=== PATIENT | male | born 1955 | race African-American/Black ===

== ENCOUNTER 2019-03-22 11:03 | Emergency (ER) | payer OTHER, SELFPAY ==
--- NOTE | 2019-03-22 11:10 | PC.NURSE ---
PT DECIDED NOT TO BE SEEN PRIOR TO TRIAGE.
== END 2019-03-22 11:10 | disposition left against medical advice (07) ==
LOC: ANHED 11:11
PROVIDERS: PCP Internal Medicine
DX: Z53.21 Procedure and treatment not carried out due to patient leaving prior to being seen by health care provider (principal)
CPT/HCPCS: 99199

== ENCOUNTER 2019-04-23 10:35 | Emergency (ER) | payer OTHER, SELFPAY ==
[2019-04-23 11:22] VITALS: BP 126/77; PULSE 73; RESP 20; TEMP 37; O2SAT 100
--- NOTE | 2019-04-23 11:46 | ED.GENADULT ---
HPI - General Adult General Chief complaint: Eye Problems Stated complaint: FO in eye Time Seen by Provider: 04/23/19 11:46 Source: patient and RN notes reviewed Mode of arrival: ambulatory Limitations: no limitations History of Present Illness HPI narrative: 63-year-old -Guyanese male presents with complaints of foreign body sensation in LT eye, swelling, and redness for 1 day. No treatment. Demar says he believes that dust might have flown into his eye last night between 22:00/23:00 while checking on construction work done at his home. LT eye pain clear drainage. Denies injury or trauma to eye. No exacerbating factors. No relieving factors. Denies blurred vision, double vision, or pain of eye with movement. Denies fever or chills. Denies URI symptoms. Remains active. Some parts of this dictation were generated by voice recognition software and may contain typographical and/or grammatical inaccuracies. Related Data Home Medications Medication Instructions Recorded Confirmed amlodipine 10 mg PO DAILY 03/07/19 04/23/19 aspirin [Aspirin Low Dose] 81 mg PO DAILY 03/07/19 04/23/19 flecainide 100 mg PO DAILY 03/07/19 04/23/19 olmesartan-hydrochlorothiazide 1.5 tablet PO DAILY 03/07/19 04/23/19 [Benicar HCT] Allergies Allergy/AdvReac Type Severity Reaction Status Date / Time No Known Allergies Allergy Verified 04/23/19 11:24 Review of Systems Constitutional: Comments: CONSTITUTIONAL: Denies fever, chills, sweats. EYES: Denies visual changes. Complains of foreign body sensation in LT eye, swelling, and redness. ENT: Denies rhinorrhea, congestion, sore throat, otalgia. CARDIOVASCULAR: Denies chest pain, palpitations, edema. RESPIRATORY: Denies dyspnea, wheezing, cough. GASTROINTESTINAL: Denies abdominal pain, nausea, vomiting, diarrhea. GENITOURINARY: Denies dysuria, hematuria, abnormal discharge. SKIN: Denies rash or itching. MUSCULOSKELETAL: Denies acute back pain, joint pain, or myalgia. NEUROLOGIC: Denies numbness or focal weakness. PSYCHIATRIC: Denies anxiety or depression. All systems reviewed & are unremarkable except as noted in HPI and below. [facility] Past Medical History Medical History (Updated 04/28/19 @ 01:15 by SHEILA Laughlin) Atrial fibrillation History of cardioversion Hypertension Surgical History Surgical History (Updated 04/28/19 @ 01:15 by SHEILA Laughlin) No significant past surgical history Family History Family History (Updated 04/28/19 @ 01:15 by SHEILA Laughlin) Other No significant family history Social History Social History (Updated 04/28/19 @ 01:16 by SHEILA Laughlin) Smoking status: Never smoker Second hand tobacco smoke exposure: No Alcohol intake: never Substance use: never Living arrangements: with family Occupation/Education: occupation Gender identity (if verbalized by the patient): Male Comments At time of signature, I have reviewed and agree with nursing past medical, surgical, social, and family history. Please see nursing chart for further information. There is no relevant family history pertinent to the presenting complaint. Exam Narrative: Exam Narrative: GENERAL: This is a well-nourished, well-developed patient, in no apparent distress. HEAD: normocephalic, atraumatic. EYES: PERRL. Sclera clear/white to RT eye only. LT eye sclera duane, clear, with a small between 7&8 Subconjunctival Hemorrhage with clear watery drainage. No visible or palpable Hordeolum present, no drainable abscess. No foreign body or lesions were noted on eversion of upper eyelid. No tenderness on palpation or erythema. Mild upper eyelid swelling consistent with mild Patricia-orbital cellulitis. No concern for orbital cellulitis. No tenderness on palpation. Vision is grossly intact. EARS: External ears normal, auditory canals clear and without drainage, TMs normal without perforation. Hearing grossly intact. NOSE: External nose nor
== END 2019-04-23 12:16 | disposition home or self-care (01) ==
PROVIDERS: Emergency Provider Nurse Practitioner Family
DX: L03.213 Periorbital cellulitis (principal); H11.31 Conjunctival hemorrhage, right eye
CPT/HCPCS: 99213; A9270; G0463

== ENCOUNTER 2021-07-23 18:55 | Emergency (ER) | payer MEDICARE, SELFPAY ==
--- NOTE | 2021-07-23 18:57 | ED.SKABFB ---
HPI - Skin/Abscess/Foreign Bdy General Chief complaint: Wound/Laceration Stated complaint: laceration lt hand Time Seen by Provider: 07/23/21 18:57 Source: patient Mode of arrival: ambulatory Limitations: no limitations History of Present Illness HPI narrative: Mr. Mcgowan is a 65-year-old male patient presenting to the clinic today with complaints of a laceration to his left hand that he cut with a chainsaw approximately 1 hour prior to arrival. He reports that he thinks his tetanus shot is up-to-date. Bleeding is controlled. Related Data Home Medications Medication Instructions Recorded Confirmed aspirin 81 mg tablet,delayed 81 mg PO DAILY 03/07/19 07/23/21 release (Alysa Low Dose Aspirin) flecainide 100 mg tablet 100 mg PO DAILY 03/07/19 07/23/21 olmesartan 20 1.5 tablet PO DAILY 03/07/19 07/23/21 mg-hydrochlorothiazide 12.5 mg tablet (Benicar HCT) Allergies Allergy/AdvReac Type Severity Reaction Status Date / Time No Known Allergies Allergy Verified 12/25/20 15:16 Review of Systems Review of Systems: Pertinent positives per HPI. Patient denies any fever, chills, rash, headache, visual changes, dizziness, cough, runny nose, sore throat, shortness of breath, chest pain, palpitations, nausea, vomiting, diarrhea, constipation, abdominal pain, or any urinary issues. PMFSH Past Medical History Medical History Atrial fibrillation History of cardioversion Hypertension Surgical History Surgical History No significant past surgical history Family History Family History Other No significant family history Social History Social History Smoking status: Never smoker Second hand tobacco smoke exposure: No Alcohol intake: never Substance use: never Gender identity (if verbalized by the patient): Male Comments At the time of my signature, I reviewed and agree with the nursing past medical, surgical, social, and family history. There is no relevant family history pertinent to the patient complaint. Exam Narrative: General: Well-developed, well nourished, in no apparent distress Head: Normocephalic, atraumatic. Cardio: Regular rate and rhythm, s1 and s2 normal, no murmur appreciated. Resp: Clear to auscultation bilaterally, no rhonchi, rales, wheezing or rubs. Integumentary: [place], warm, and dry, 1 1.5 cm laceration to the left fourth proximal dorsal finger and one 1 cm laceration to the left fifth proximal dorsal finger. Bleeding controlled Course Course Emergency Course: Portions of this record may have been created with voice recognition software. Level of Care: Express Care Visit Vital Signs Vital signs: Vital Signs Temperature 36.2 C L 07/23/21 19:10 Pulse Rate 90 07/23/21 19:10 Respiratory Rate 18 07/23/21 19:10 Blood Pressure 141/91 H 07/23/21 19:10 Pulse Oximetry 99 07/23/21 19:10 Oxygen Delivery Room Air 07/23/21 19:10 Temperature 36.2 C L 07/23/21 19:10 Pulse Rate 90 07/23/21 19:10 Respiratory Rate 18 07/23/21 19:10 Blood Pressure 141/91 H 07/23/21 19:10 Pulse Oximetry 99 07/23/21 19:10 Oxygen Delivery Room Air 07/23/21 19:10 Vital signs reviewed Procedures Laceration Laceration 1: Date: 07/23/21 Site: hand (Proximal fourth and fifth finger of the left hand) Size (cm): 1.5 Description: linear Depth: simple, single layer Local Anesthetic: lidocaine 1% Amount of anesthesia used (mL): 2 ====== Skin Level ====== Skin layer closed with: nylon Size (cm): 5-0 Number of sutures: 9 ====== Subcutaneous Layer ====== ====== Muscle Layer ====== ====== Tendon Layer ====== Dressing: Verbal consent obtained for laceration repair. Risk and
[2021-07-23 19:10] VITALS: BP 141/91; PULSE 90; RESP 18; TEMP 36.2; O2SAT 99
== END 2021-07-23 19:51 | disposition home or self-care (01) ==
PROVIDERS: Emergency Provider Nurse Practitioner Family
DX: S61.215A Laceration without foreign body of left ring finger without damage to nail, initial encounter (principal); S61.217A Laceration without foreign body of left little finger without damage to nail, initial encounter; W29.3XXA Contact with powered garden and outdoor hand tools and machinery, initial encounter; I48.91 Unspecified atrial fibrillation; I10 Essential (primary) hypertension; Z79.82 Long term (current) use of aspirin
CPT/HCPCS: 12001; 99212; G0463

== ENCOUNTER 2021-08-01 17:51 | Emergency (ER) | payer MEDICARE, SELFPAY ==
--- NOTE | 2021-08-01 18:01 | ED.GENADULT ---
HPI - General Adult General Chief complaint: Skin/Abscess/Foreign Body Stated complaint: suture removal Time Seen by Provider: 08/01/21 18:10 History of Present Illness HPI narrative: 65-year-old male patient presents to the [facility] with request for suture removals. Patient states he has a total of 9 sutures to his left ring finger and pinky finger. Patient states that he has had no issues with the laceration continues to clean it as well as put antibiotic ointment on it. Denies any fevers, body aches or chills. Related Data Home Medications Medication Instructions Recorded Confirmed aspirin 81 mg tablet,delayed 81 mg PO DAILY 03/07/19 07/23/21 release (Alysa Low Dose Aspirin) flecainide 100 mg tablet 100 mg PO DAILY 03/07/19 07/23/21 olmesartan 20 1.5 tablet PO DAILY 03/07/19 07/23/21 mg-hydrochlorothiazide 12.5 mg tablet (Benicar HCT) Allergies Allergy/AdvReac Type Severity Reaction Status Date / Time No Known Allergies Allergy Verified 08/01/21 18:07 Review of Systems Review of Systems: CONSTITUTIONAL: Denies fever, chills, or sweats. EYES: Denies visual changes, redness, or discharge. ENT: Denies rhinorrhea, congestion, sore throat, or otalgia. CARDIOVASCULAR: Denies chest pain, palpitations, or edema. RESPIRATORY: Denies cough or dyspnea. GASTROINTESTINAL: Denies abdominal pain, nausea, vomiting, or diarrhea. GENITOURINARY: Denies dysuria or hematuria. SKIN: Denies rash or itching. Positive laceration to left ring finger and pinky with 9 sutures intact MUSCULOSKELETAL: Denies back pain, joint pain, or myalgia. NEUROLOGIC: Denies headache, numbness, or weakness. PSYCHIATRIC: Denies anxiety or depression. [facility] Past Medical History Medical History Atrial fibrillation History of cardioversion Hypertension Surgical History Surgical History No significant past surgical history Family History Family History Other No significant family history Social History Social History (Reviewed 08/01/21 @ 18:01 by CIERRA [place] Smoking status: Never smoker Second hand tobacco smoke exposure: No Alcohol intake: never Substance use: never Gender identity (if verbalized by the patient): Male Comments At the time of my signature I agree with nursing past medical history, surgical, social, and family history. There is no relevant family history pertinent to the presenting complaint. Exam Narrative: GENERAL: Well-appearing, well-nourished, and in no acute distress. HEAD: Normocephalic, atraumatic. EYES: PERRLA and EOMI. ENT: Nares clear, no rhinorrhea or epistaxis. Mucous membranes moist. NECK: Supple. No lymphadenopathy CHEST: Clear to auscultation. No respiratory distress. HEART: Regular rate and rhythm. No murmur heard. Normal peripheral pulses. ABDOMEN: Soft, nontender, nondistended, normal active bowel sounds. EXTREMITIES: Normal range of motion. No edema. Patient has 5 sutures noted to the left ring finger that are intact and 4 sutures noted to the left pinky finger that are intact. The wounds appear close with some scabbing noted to the area and healing present. They are well approximated. No signs or symptoms of infection noted at this time. Patient has excellent range of motion to the fingers as well as good cap refill and denies any tingling or numbness to the fingertips. SKIN: Warm, dry, no rash. NEURO: No focal deficits. Alert and oriented x3. Course Course Level of Care: Express Care Visit Vital Signs Vital signs: Vital Signs Temperature 36.7 C 08/01/21 18:03 Pulse Rate 61 08/01/21 18:03 Respiratory Rate 18 08/01/21 18:03 Blood Pressure 146/81 H 08/01/21 18:03 Pulse Oximetry 100 08/01/21 18:03 Oxygen Delivery Room Air 08/01/21 18:03 Temperature 36.7 C 08/01/21 18:03 Pulse
[2021-08-01 18:03] VITALS: BP 146/81; PULSE 61; RESP 18; TEMP 36.7; O2SAT 100
== END 2021-08-01 18:17 | disposition home or self-care (01) ==
PROVIDERS: Emergency Provider Nurse Practitioner Family
DX: S61.215D Laceration without foreign body of left ring finger without damage to nail, subsequent encounter (principal); S61.217D Laceration without foreign body of left little finger without damage to nail, subsequent encounter; X58.XXXD Exposure to other specified factors, subsequent encounter; I48.91 Unspecified atrial fibrillation; I10 Essential (primary) hypertension
CPT/HCPCS: 99211; G0463

== ENCOUNTER 2024-04-21 10:08 | Emergency (ER) | payer MEDICARE, SELFPAY ==
--- NOTE | 2024-04-21 10:21 | ED.EYEPROB ---
HPI - Eye Problem General Chief complaint: Eye Problems Stated complaint: c/o eyes swollen and red Source: patient Mode of arrival: ambulatory Limitations: no limitations History of Present Illness HPI Narrative: 68-year-old male presented for complaint of swelling to the right upper eyelid over the past few days. Endorses some itching and mild pain. Denies injury. Denies discharge, vision changes, photophobia, or foreign body sensation. MD chief complaint: eye pain Related Data Home Medications ?Medication ?Instructions ?Recorded ?Confirmed ?Last Taken ?Type aspirin 81 mg tablet,delayed 81 mg PO DAILY 03/07/19 08/01/21 Unknown History release (Alysa Low Dose Aspirin) flecainide 100 mg tablet 100 mg PO DAILY 03/07/19 08/01/21 Unknown History olmesartan 20 1.5 tablet PO DAILY 03/07/19 08/01/21 Unknown History mg-hydrochlorothiazide 12.5 mg tablet (Benicar HCT) amlodipine 2.5 mg tablet mg 04/21/24 Unknown History Allergies Allergy/AdvReac Type Severity Reaction Status Date / Time No Known Allergies Allergy Verified 04/21/24 10:22 Review of Systems Review of Systems: per HPI All systems reviewed & are unremarkable except as noted in HPI and below PMFSH Past Medical History Medical History History of cardioversion Atrial fibrillation Hypertension Surgical History Surgical History No significant past surgical history Family History Family History Other No significant family history Social History Social History Smoking status: Never smoker Second hand tobacco smoke exposure: No Alcohol intake: never Substance use: never Living arrangements: with family Occupation/Education: occupation Gender identity (if verbalized by the patient): Male Comments At time of signature, I have reviewed and agree with nursing past medical, surgical, social and family history unless otherwise noted. Please see nursing chart for further information. There is no relevant family history pertinent to the presenting complaint Exam Narrative: GENERAL: Well-appearing HEAD: Normocephalic, atraumatic. EYES: Right upper medial eyelid swelling and redness c/w stye without apparent hordeolum noted. purulent drainage is noted. No conjunctival injection, PERRLA, EOMI. Lid eversion shows no FB. ENT: Mucous membranes pink and moist. No rhinorrhea. TMs normal bilaterally. Throat normal. Uvula midline. SKIN: Warm, dry, no rash. Normal skin turgor. NEURO: No focal deficits. Alert and oriented x3 PSYCH: Normal affect. Course Course Emergency Course: Patient is aware of diagnosis, understands and agrees to treatment plan. Anticipatory guidance given. Patient agrees to follow-up as directed and is aware of reasons to seek care at the emergency department. Portions of this record may have been created with voice recognition software Level of Care: Express Care Visit MDM - Eye Problem MDM Narrative Medical decision making narrative: Discussed physical exam findings most consistent with stye. Advised supportive measures and signs/symptoms to go to the ER. Pt is appropriate for outpt treatment and f/u. Differential Diagnosis Differential diagnosis: Likely corneal abrasion, conjunctivitis, acute iritis, periorbital cellulitis, subconjunctival hemorrhage and other Discharge Plan Discharge Clinical Impression: Swelling of eyelid Patient Disposition: Home, Self-Care Condition: Stable Instructions: Antibiotic Form, Stjessica (ED) Additional Instructions: Apply warm, moist compresses on the right eye frequently (for 10 minutes five times per day) in order to help with drainage. Massage and gentle wiping of the affected eyelid after the warm compress can also help with drainage. You can use baby shampoo to wash the eye area Tylenol as needed Take medication as directed. If the lesion does not improve within one week, please follow up with an supervisor sleeping bag department for further management. Go to the ER for worsening symptoms or concerns [facility] [phone] [facility] [phone] [facility] [phone] [facility] [phone] Patient Language: Amharic Prescriptions: New cephalexin 500 mg capsule 500 mg PO Q8H 5 Days Qty: 15 0RF No Action amlodipine 2.5 mg tablet olmesartan-hydrochlorothiazide [Benicar HCT] 20-12.5 mg Tablet 1.5 tablet PO DAILY flecainide 100 mg Tablet 100 mg PO DAILY aspirin [Alysa Low Dose Aspirin] 81 mg Tablet,Delayed Release (Dr/Ec) 81 mg PO DAILY Follow-up/Referrals: Amharic,Trenton Urena MD [Primary Care Provider] - Time of Disposition: 10:37
[2024-04-21 10:23] VITALS: BP 136/81; PULSE 65; RESP 18; TEMP 36.5; O2SAT 100
== END 2024-04-21 10:42 | disposition home or self-care (01) ==
PROVIDERS: Emergency Provider Nurse Practitioner Family; PCP Internal Medicine
DX: H02.841 Edema of right upper eyelid (principal); I10 Essential (primary) hypertension; Z79.82 Long term (current) use of aspirin
CPT/HCPCS: 99213; G0463